=== PATIENT | female | born 1990 | race Caucasian/White ===

== ENCOUNTER 2022-05-16 07:44 | Day surgery (SDC) | payer BC ==
[~2022-05-16 07:44] MED LIST: CLINDAMYCIN 600 MG in DEXTROSE 5% IN WATER 50 ML IVPB PRN; DEXAMETHASONE SOD PHOSPHATE 4 MG/ML 1 ML VIAL IV PRN; FAMOTIDINE 20 MG/2 ML VIAL IV PRN; HYDROmorphone 0.5 MG/0.5 ML SYRINGE IVP PRN; LACTATED RINGERS 1,000 ML IV SCH; ONDANSETRON 4 MG/2 ML VIAL IVP PRN; OXYMETAZOLINE 0.05% NASL SPRAY 1 SPRAY BOTTLE EA NOSTRIL PRN
[2022-05-16] MEDS ORDERED: SCOPOLAMINE 1 MG/72 HR PATCH TRANSDERM ONE (08:26)
[2022-05-16] MEDS ORDERED: MIDAZOLAM 2 MG/2 ML VIAL IVP ONE (08:39)
[2022-05-16] MEDS ORDERED: LIDOCAINE 2% INJ 20 MG/ML (2 ML VIAL) ONE (09:23)
[2022-05-16] MEDS ORDERED: PROPOFOL 10 MG/ML 20 ML VIAL IV ONE (09:23)
[2022-05-16] MEDS ORDERED: MIDAZOLAM 2 MG/2 ML VIAL ONE (09:23)
[2022-05-16] MEDS ORDERED: fentaNYL (PF) 50 MCG/ML 2 ML AMP ONE (09:23)
[2022-05-16] MEDS ORDERED: SUCCINYLCHOLINE CHLORIDE 200 MG/10 ML VIAL IV ONE (09:23)
[2022-05-16] MEDS ORDERED: OFLOXACIN 0.3% OPHTH DROPS 5 ML BOTTLE BOTH EARS ONE (09:28)
--- NOTE | 2022-05-16 10:16 | P.OP ---
Date of Procedure: 05/16/22 Preoperative Diagnosis: Bilateral chronic otitis media with effusion Postoperative Diagnosis: Same with inferior turbinate hypertrophy Procedure(s) Performed: Bilateral ventilation tube placement Nasal endoscopy bilateral with outfracture of the inferior turbinates balloon eustachian tuboplasty bilateral Anesthesia: GETA Surgeon: Medardo Castellanos Estimated Blood Loss (ml): 2 Pathology: none sent Condition: stable Disposition: PACU Indications for Procedure: Is a 31-year-old white female whose had difficulties with her ears for many years even in childhood requiring ventilation tubes in the past the last time when she was in high school. She's had continued hearing loss and middle ear effusions. She has had adenoidectomy previously. She has no chronic nasal symptoms presently. Operative Findings: Bilateral mucoid middle ear effusions with atelectatic tympanic membranes which was severe and retractions of the tympanic membranes., Inferior turbinate hypertrophy bilateral, status post adenoidectomy with no nasopharyngeal masses Description of Procedure: The patient was brought into the operative suite and placed in a supine position. Patient underwent induction of general anesthesia with oral endotracheal intubation without difficulty. The patient was prepped and draped in the usual aseptic fashion. The Ze[employer] microscope was brought into position over the left ear and cerumen was cleaned from on the tympanic membrane itself revealing severe atelectatic tympanic membrane. Anteroinferior myringotomy was placed in radial fashion and the mucoid middle ear effusion was aspirated which did reaerate the middle ear. A triune ventilation tube was placed without difficulty. It was elected to use a triune tube rather than a T-tube due to the severe atelectasis and was not felt that the T-tube to hold as well. Floxin otic suspension was placed in the external auditory canal followed by sterile cotton ball. Attention was then turned to the right where the procedure was followed exactly as it had been on the left. Full nasal endoscopy was then performed bilaterally. The inferior turbinates were hypertrophied and therefore in order to access the eustachian tube the inferior turbinates were outfractured with [place] elevator. Beginning on the left eustachian tube orifice was well visualized and a balloon eustachian tuboplasty was performed with the Acclarent eustachian tube instrumentation at and inflation of 10 cm of pressure and then deflated. Attention was turned to the right where the procedure was followed as it was on the left. Good hemostasis was noted. The patient was then allowed to emerge from anesthesia having tolerated procedure well was extubated in the operating suite and transferred to the postop recovery area in satisfactory condition.
[2022-05-16 10:21] VITALS: TEMP 97
[2022-05-16 10:56] VITALS: RESP 16
[2022-05-16 11:35] VITALS: BP 108/67; PULSE 72
== END 2022-05-16 12:16 | disposition home or self-care (01) ==
LOC: OR 07:44
PROVIDERS: ATTEND Otolaryngology
DX: H65.493 Other chronic nonsuppurative otitis media, bilateral (principal); J34.3 Hypertrophy of nasal turbinates; G47.30 Sleep apnea, unspecified; K21.9 Gastro-esophageal reflux disease without esophagitis; Z88.0 Allergy status to penicillin; Z91.011 Allergy to milk products
CPT/HCPCS: 81025; 69436; 30930; C1726; J2250; J0330; J1100; J2405; J3010; J2704; J2001